=== PATIENT | female | born 1965 | race Caucasian/White ===

== ENCOUNTER → 2017-05-23 | Emergency (ER) | payer OTHER ==
[~2017-05-23] VITALS: Ht 162.6 cm; Wt 78.9 kg
[~2017-05-23] MED LIST: BUTALB-ASPIRIN1 EACH; CLEOCIN HCL300 MG; DEXAMETHASONE2 MG; FARXIGA10 MG; IBUPROFEN800 MG PO; KETO10TA2 PO; LEVOFLOXACIN250 MG; MONTELUKAST SOD10 MG; NORFLEX100MG PO; VASOTEC10 MG
== END | disposition home or self-care (01) ==
LOC: ER 08:50
DX: K04.7 Periapical abscess without sinus (principal)

== ENCOUNTER 2017-05-24 13:20 | Emergency (ER) | payer OTHER ==
[~2017-05-24] VITALS: Ht 162.6 cm; Wt 79.4 kg
[~2017-05-24 13:20] MED LIST changes: -KETO10TA2 PO; -NORFLEX100MG PO
[2017-05-24] MEDS ORDERED: NORFLEX100MG PO (16:33)
[2017-05-24] MEDS ORDERED: KETO10TA2 PO (16:33)
== END 2017-05-24 16:53 | disposition home or self-care (01) ==
LOC: ER 13:20
DX: G43.909 Migraine, unspecified, not intractable, without status migrainosus (principal)